=== PATIENT | male | born 2000 | race Caucasian/White ===

== ENCOUNTER 2020-09-06 13:46 | Emergency (ER) | payer SELFPAY ==
[2020-09-06 13:54] VITALS: BP 150/100; PULSE 80; RESP 18; TEMP 37.7; O2SAT 99; BMI 34.4
[2020-09-06 14:15] VITALS: BP 157/97; PULSE 80; RESP 18; TEMP 36.6; O2SAT 98; BMI 34.4
--- NOTE | 2020-09-06 14:16 | HMH.EDUTC ---
[facility] [place] Clinical Impression: Lymphadenopathy of head and neck Disposition: Home, Self-Care Condition on Discharge: Good Instructions: DI for Lymphadenopathy Additional Instructions: Apply warm wet compresses to the affected sites three or four times per day for 15 minutes as tolerated. Take tylenol or ibuprofen for pain or fever. Take the medications as directed. Follow up with your regular doctor. Make sure you follow up to have this rechecked. GO TO THE ER FOR ANY WORSENING SYMPTOMS Prescriptions: Amoxicillin/Potassium Clav [Augmentin 875-125 Tablet] 1 tab PO Q12H 10 Days #20 tab Transmission Status: Received by [facility] #[id number] Referrals: Provider,Referral, [Primary Care Provider] - Time of Disposition: 14:23 Medical Decision Making - Medical Records Medical records reviewed: No: I reviewed the patient's medical records. - Tuan Inquiry Pt receiving controlled substance: No Vital Signs: 09/06/20 13:54 09/06/20 14:15 09/06/20 14:27 Temperature 99.8 F H 97.8 F 97.8 F Temperature Source Oral Temporal Artery Scan Pulse Rate 80 Pulse Rate [Left Radial] 80 80 Respiratory Rate 18 18 18 Blood Pressure 157/97 H Blood Pressure [Left Arm] 150/100 H 157/97 H Blood Pressure Mean [Left Arm] 116 117 Blood Pressure Source [Left Arm] Automatic Cuff Automatic Cuff Blood Pressure Position [Left Arm] Sitting Sitting 02 Sat by Pulse Oximetry 99 98 Oxygen Delivery Method Room Air Room Air [facility] [place] - General Stated complaint: lump on neck Time Seen by Provider: 09/06/20 14:18 Mode of Arrival: Ambulatory Source of Information: Patient Limitations: No Limitations Description of Symptoms (Recalled from Triage Doc. by RN): Pt reports he noticed a lump on R side of neck earlier today while he was rubbing his neck. Pt reports his neck has been sore for approx 1 week. Pt denies fevers, denies redness - History of Present Illness Provider Complaint: He states that he woke up this morning and noted a tender knot on the right side of his neck. He denies any other knots on his body. He denies any fever/chills or feeling bad. He denies any sore throat. He denies any known tick bites or wound. - Related Data Previous Rx's Medication Instructions Recorded Amoxicillin/Potassium Clav 1 tab PO Q12H 10 Days #20 tab 09/06/20 [Augmentin 875-125 Tablet] Allergies Allergy/AdvReac Type Severity Reaction Status Date / Time No Known Allergies Allergy Verified 09/06/20 14:08 [facility] History - Hepatitis A Screen Attestation statement:: This patient has been screened for Hepatitis A risk factors. I have reviewed the patient's past medical history: Yes ROS Obtained: Yes All systems reviewed & no additional complaints - Constitutional Constitutional: Denies chills, Denies fever(s), Denies poor appetite, Denies malaise - Eyes Eyes: Denies eye discharge - ENT Ears, Nose, Mouth, and Throat: Reports as per HPI - Cardiovascular Cardiovascular: Denies chest pain - Respiratory Respiratory: Denies chest congestion, Denies cough, Denies dyspnea, Denies stridor, Denies wheezing - Gastrointestinal Gastrointestingal: Denies: abdominal pain, diarrhea, nausea, vomiting Physical Exam - General General appearance: alert, in no apparent distress - Head Head exam: atraumatic, normocephalic, normal inspection - Eye Eye exam: Present: normal appearance, PERRL, EOMI - ENT ENT exam: Present: normal exam, normal oropharynx, mucous membranes moist, TM's normal bilaterally, normal external ear exam - Neck Neck exam: Present: full ROM, trachea midline, lymphadenopathy. Absent: meningismus - Chest Chest inspection: Present: normal inspection, symmetric chest wall rise. Absent: tenderness - Respiratory Respiratory exam: Present: normal lung sounds bilaterally. Absent: respiratory distress - Cardiovascular Cardiovascular exam: Present: regular rate, nor
[2020-09-06 14:27] VITALS: BP 157/97; PULSE 80; RESP 18; TEMP 36.6; O2SAT 95
== END 2020-09-06 14:28 | disposition home or self-care (01) ==
LOC: ER 14:03 → UTC 14:03
PROVIDERS: Emergency Provider Nurse Practitioner Family
DX: R59.1 Generalized enlarged lymph nodes (principal)
CPT/HCPCS: 99202; G0463